=== PATIENT | female | born 1985 | race Caucasian/White ===

== ENCOUNTER 2022-09-29 13:11 | Inpatient (IN) ==
[2022-09-30] MEDS ORDERED: LIDOCAINE 1% LOCAL 20 ML VIAL INFIL PRN (07:56)
[2022-09-30] MEDS ORDERED: OXYTOCIN 30 UNITS/500 ML BAG IV PRN ×2 (07:56)
[2022-09-30 08:21] LABS: Hematocrit (blood only) 38.8 % (34.1-44.9); Hemoglobin 13.3 g/dl (12.0-16.0); Mean Corpuscular Hemoglobin 32.9 pg (25.0-34.0); Mean Corpuscular Hgb Conc 34.3 g/dL (32.0-36.0); Mean Platelet Volume 11.5 fL (9.4-12.3); Platelet Count 174 K/uL (130-400); RDW Coefficient of Variation 13.4 % (11.5-14.5); RDW Standard Deviation 47.8 fL (36.4-46.3); Red Blood Count 4.04 M/uL (3.93-5.22); White Blood Count 7.14 K/ul (4.8-10.8)
--- NOTE | 2022-09-30 08:22 | History & Physical Report ---
Date of Service September 30, 2022 Assessment & Plan (1) Gestational diabetes: Plan: post dates induction Admission and Anticipated Discharge Date Admission Date: September 30, 2022 History of Present Illness Primary Care Provider: NO PCP Visit PINA Calculator Estimated Delivery Date Method Current WG Current Estimate 09/21/22 LMP (Certain) 41w 1d LMP: 12/15/21 : 1 Full term: 0 Premature: 0 Total Number of Induced Abortions: 0 Total Number of Spontaneous Abortions: 0 Ectopics: 0 Multiple births: 0 Number of Living Children: 0 and Delivery Plans + Covid 06/11/22, sx's began 06/10/22 AMA Weekly NST's @ 36 weeks GDM Monthly Growth u/s's Flu vaccine given 09/10/22- MK Allergies Allergy/AdvReac Type Severity Reaction Status Date / Time No Known Allergies Allergy Verified 09/29/22 13:01 Home Medications Medication Instructions Recorded Confirmed Type vits no.124-ferrous fum 1 tab PO DAILY 01/18/22 09/29/22 History 27 mg iron-folic acid 800 mcg tablet ( Vitamin) acetone (urine) test (Ketone Urine #50 ea 07/17/22 09/29/22 Rx Test strips) blood sugar diagnostic (OneTouch #150 ea 07/17/22 09/29/22 Rx Verio test strips) blood-glucose meter (OneTouch #1 ea 07/17/22 09/29/22 Rx Verio Reflect Meter) lancets 33 gauge (OneTouch Delica #150 ea 07/17/22 09/29/22 Rx Plus Lancet) Patient History Medical History History of chicken pox Surgical History S/P tonsillectomy Status post labral repair of shoulder Family History (Updated 02/03/22 @ 14:10 by Baylee Ritchie) Father Colorectal cancer Denies family history of Ovarian cancer Breast cancer Social History (Updated 02/03/22 @ 14:11 by Baylee Ritchie) Smoking Status: Never smoker marital status: marital status details: Alabn January (36) [phone] Current Living Situation: Spouse Current Living Situation Comment: lives with spouse, dog current occupational status: employed current occupation: [employer] Feels Safe at Home: Yes Review of Systems as per Subjective / HPI Physical Exam Constitutional: WD/WN, vitals as above well developed and well nourished Respiratory: normal respiratory effort, lungs clear to auscultation normal respiratory effort Cardiovascular: RRR, no murmur, no edema Gastrointestinal (Abdomen): normal bowel sounds, soft, nontender, no hepatosplenomegaly Results & Data ([facility]) Vital Signs (Past 12 Hours) Vital Signs Pulse BP 09/30/22 08:07 70 144/78 H Coding Level of Care Code None Diagnoses Gestational diabetes O24.419
[2022-09-30] MEDS: LACTATED RINGER'S 1,000 ML IV PRN ×3 (09:07→19:45)
[2022-09-30] MEDS ORDERED: BUPIVACAINE 0.25% 30 ML VIAL ONE (19:03)
[2022-09-30] MEDS ORDERED: fentaNYL citrate 100 MCG/2 ML VIAL ONE (19:03)
[2022-09-30] MEDS ORDERED: ePHEDrine sulfate 50 MG/ML AMP ONE (19:03)
[2022-09-30] MEDS ORDERED: LIDOCAINE 2%/EPINEPHRINE 1:200,000 20 ML SDV ONE (19:03)
[2022-09-30] MEDS ORDERED: SODIUM CHLORIDE 0.9% INJ 10 ML VIAL ONE (19:03)
[2022-09-30] MEDS ORDERED: fentaNYL 2MCG/ML ROPIVACAINE 1.25MG/ML 100 ML BAG EPI ONE (19:04)
[2022-09-30] MEDS ORDERED: diphenhydrAMINE 50 MG/ML VIAL IV PRN (19:10)
[2022-09-30] MEDS ORDERED: ePHEDrine sulfate 50 MG/ML AMP IV PRN (19:10)
[2022-09-30] MEDS ORDERED: NALBUPHINE HCL INJ 10 MG/ML AMP IV PRN (19:10)
[2022-09-30] MEDS ORDERED: NALOXONE HCL 0.4 MG/1 ML VIAL/CARP IV PRN (19:10)
[2022-09-30] MEDS ORDERED: fentaNYL 2MCG/ML ROPIVACAINE 1.25MG/ML 100 ML BAG EPI PRN (19:10)
[2022-09-30] MEDS ORDERED: NALOXONE HCL 1 MG in SODIUM CHLORIDE 0.9% 1000ML 1,000 ML IV PRN (19:10)
--- NOTE | 2022-09-30 19:10 | Anesthesiology Consultation ---
Date of Service September 30, 2022 Assessment & Plan (1) Encounter for pre-operative examination: Chart Review Chart Review: Patient NOT seen in Pre Admission Testing and Acceptable Risk for Labor Epidural Consults Requested none History Height/Weight Height: 5 ft 2 in Weight: 58.513 kg Allergies Allergy/AdvReac Type Severity Reaction Status Date / Time No Known Allergies Allergy Verified 09/29/22 13:01 Medications Home Medications Medication Instructions Recorded Confirmed Last Taken vits no.124-ferrous fum 1 tab PO DAILY 01/18/22 09/30/22 09/29/22 27 mg iron-folic acid 800 mcg tablet ( Vitamin) acetone (urine) test (Ketone Urine #50 ea 07/17/22 09/29/22 Unknown Test strips) blood sugar diagnostic (OneTouch #150 ea 07/17/22 09/29/22 Unknown Verio test strips) blood-glucose meter (OneTouch #1 ea 07/17/22 09/29/22 Unknown Verio Reflect Meter) lancets 33 gauge (OneTouch Delica #150 ea 07/17/22 09/29/22 Unknown Plus Lancet) Active Medications Generic Name Dose Route Start Last Admin Trade Name Freq PRN Reason Stop Dose Admin Oxytocin 30 units in 500 mls @ 5 mls/hr 09/30/22 07:56 09/30/22 19:05 Pitocin IV 10/02/22 07:55 0.3 units/hr .Q24H PRN 5 mls/hr Labor Induction/Augmentation Titration Protocol 0.3 UNITS/HR Lactated Ringer's 1,000 mls @ 125 mls/hr 09/30/22 07:56 09/30/22 17:18 Lr IV 10/02/22 07:55 125 mls/hr .Q8H PRN Administration L&D Protocol Protocol Past Medical History Medical History History of chicken pox Past Family History Family History Father Colorectal cancer Denies family history of Ovarian cancer Breast cancer Past Surgical History Surgical History H/O wisdom tooth extraction S/P tonsillectomy Status post labral repair of shoulder Social History Smoking Status: Never smoker Hx Alcohol Use: No Hx Substance Use: No substance use type: does not use Physical Exam Vital Signs Last Vital Signs Temp 97.9 F 09/30/22 17:00 Pulse 69 09/30/22 18:53 Resp 20 09/30/22 15:30 BP 151/83 H 09/30/22 18:53 Testing Laboratory Results 09/30/22 08:08
--- NOTE | 2022-10-01 01:59 | Delivery Summary ---
Vaginal Delivery Summary Date of Service October 01, 2022 Vaginal Delivery Summary Postdates induction begun with Pitocin and then eventually epidural and artificial rupture of membranes for clear fluid patient then pushed baby in occiput anterior position delivering the head mouth and then nares were suctioned there was no nuchal cord gentle traction no excessive force live female infant initially some resuscitation but then vigorous cord clamped and cut cord gases obtained cord blood obtained placenta removed with gentle traction IV Pitocin started uterine tone improved second-degree tear repaired with 3-0 Vicryl sponge and instrument counts correct estimated blood loss 200 mL
[2022-10-01] MEDS ORDERED: HYDROCORTISONE ACETATE 25 MG SUPP PR PRN (02:19)
[2022-10-01] MEDS ORDERED: DIPHTHERIA/TETANUS/PERTUSSIS 0.5 ML SYR/VIAL IM ONE (02:19)
[2022-10-01] MEDS ORDERED: oxyCODONE/ACETAMINOPHEN 5mg/325mg TAB PO PRN (02:19)
[2022-10-01] MEDS ORDERED: OXYTOCIN 30 UNITS/500 ML BAG IV PRN (02:19)
[2022-10-01] MEDS ORDERED: ACETAMINOPHEN 325 MG TAB PO PRN (02:19)
[2022-10-01] MEDS ORDERED: BENZOCAINE 20% AER SPR 82.5 GM CAN EXT PRN (02:19)
[2022-10-01 03:21] LABS: Base Excess Cord Venous Blood -5.4 mEq/L (-7.7-1.9); Cord Venous Blood HCO3 22 mmol/L (18.4-26.8); Cord Venous Blood PCO2 47 mmHg (30.4-57.2); Cord Venous Blood PO2 19 mmHg (14.1-43.3); Cord Venous Blood pH 7.27 (7.20-7.44); O2 Saturation Cord Venous Bld < 60.0 % (<68)
[2022-10-01] MEDS: IBUPROFEN 600 MG TAB PO PRN ×3 (04:10→19:13)
--- NOTE | 2022-10-01 07:50 | Anesthesia Procedure Note ---
Date of Service October 01, 2022 Anesthesia Post Epidural Note Vital Signs Vital Signs: Temp Pulse Resp BP Pulse Ox O2 Del Method 36.7 C 71 20 105/63 98 10/01/22 07:34 10/01/22 07:34 10/01/22 07:34 10/01/22 07:34 10/01/22 07:34 10/01/22 07:34 Pain Intensity Abdomen: Pain Intensity: 10 Notes Mental Status: alert / awake / arousable and participated in evaluation Nausea / Vomiting: adequately controlled Pain: adequately controlled Airway Patency, RR, SpO2: stable & adequate BP & HR: stable & adequate Hydration State: stable & adequate Neuraxial Anesthesia: was administered and sensory block resolved Anesthetic Complications: no major complications apparent and Pt Satisfied with anesthetic care Epidural: Removed without complications and With tip intact
[2022-10-01] MEDS: DOCUSATE SODIUM 100 MG CAP PO SCH ×2 (08:42→19:14)
[2022-10-01] MEDS: PRENATAL VITAMIN 1 TAB PO SCH (08:43)
[2022-10-02] MEDS: IBUPROFEN 600 MG TAB PO PRN (06:07)
--- NOTE | 2022-10-02 06:08 | Obstetrical Progress Note ---
Date of Service October 02, 2022 Assessment & Plan (1) Supervision of elderly primigravida: (2) Gestational diabetes: Plan s/p PPD#1: Vital signs reviewed and WNL, Tmax 37 Hemoglobin 13.3 (09/30) A+, GBS negative, rubella immune Continue regular diet, treat pain as needed Encourage ambulation Discussed discharge- plan to d/c today, follow up at office in 6 weeks Admission and Anticipated Discharge Date Admission Date: September 30, 2022 Supervising Physician Co-Signing Physician Notes Resident Physician Supervision Note: I interviewed and examined the patient. Discussed with Dr. Henderson and agree with findings and plan as documented in the note. Any exceptions or clarifications are listed here: [None] Documented By: Jeannie Ngo MD, FACOG Subjective Shala is a 37 y/o female who is PPD #1 following delivery at 41 11/29 [facility]. Her was complicated by gestational diabetes. She reports feeling well overall this morning. Denies any abdominal cramping, pain well managed on analgesics. Voiding without issue- some burning at site of stitches. Tolerating meals overnight and able to ambulate some. Has some persistent lochia with some improvement this morning. Currently breast feeding. Review of Systems Constitutional: no fever, no chills and no sweats Respiratory: no cough, no dyspnea and no wheezing Cardiovascular: no chest pain, no palpitations and no calf pain Genitourinary: no dysuria Neurologic: no headache(s) Physical Exam Constitutional: WD/WN, vitals as above no acute distress Respiratory: no respiratory distress Auscultation: lungs clear to auscultation bilaterally; no rales, no rhonchi and no wheezes Cardiovascular: RRR, no murmur, no edema Extremities: no calf tenderness and no edema Negative Huy's sign bilaterally. Genitourinary: Uterine fundus firm, palpable below the umbilicus. Results & Data ([facility]) Vital Signs (Past 12 Hours) Vital Signs Temp Pulse Resp BP Pulse Ox O2 Del Method 10/01/22 23:14 36.6 C 62 18 99/61 L 99 Room Air 10/01/22 19:59 36.6 C 69 16 131/78 99 Room Air Resident Activity Tracking Resident Involvement: Resident Care Provided Care Provided: OB Delivery
[2022-10-02 07:29] LABS: Hematocrit (blood only) 28.6 % (34.1-44.9); Hemoglobin 9.7 g/dl (12.0-16.0); Mean Corpuscular Hgb Conc 33.9 g/dL (32.0-36.0); Mean Corpuscular Volume 97.3 fL (80.0-100.0); Mean Platelet Volume 10.8 fL (9.4-12.3); Platelet Count 142 K/uL (130-400); RDW Coefficient of Variation 13.8 % (11.5-14.5); RDW Standard Deviation 49.1 fL (36.4-46.3); Red Blood Count 2.94 M/uL (3.93-5.22); White Blood Count 13.46 K/ul (4.8-10.8)
[2022-10-02] MEDS: DOCUSATE SODIUM 100 MG CAP PO SCH (09:33)
[2022-10-02] MEDS: PRENATAL VITAMIN 1 TAB PO SCH (09:33)
[2022-10-02] MEDS ORDERED: bisacodyL 5 MG TABEC PO SCH (20:00)
[2022-10-03] MEDS ORDERED: bisacodyL 10 MG SUPP PR PRN (23:00)
== END 2022-10-02 14:15 | disposition home or self-care (01) | DRG 807 ==
LOC: 4S1 09-30 07:54 → 4E2 10-01 04:57